=== PATIENT | female | born 2000 | race Caucasian/White ===

== ENCOUNTER 2022-10-12 22:03 | Inpatient (IN) ==
--- NOTE | 2022-10-13 00:39 | Obstetrical Progress Note ---
Date of Service October 13, 2022 Assessment & Plan (1) Encounter for maternal care for breech presentation in [place] : Plan: 22yo @ 39 weeks gestation labor check Minimal irreg ctx VE; 2cm - unchanged Breech presentation admit for c/sec Ctx are minimal. c/sec cornelius for AM Results & Data ([place]) Vital Signs (Past 12 Hours) Vital Signs Temp Pulse Resp BP 10/13/22 00:00 18 10/13/22 00:00 18 10/12/22 22:12 74 136/84 10/12/22 22:23 36.5 C 18
[2022-10-13 01:06] LABS: Basophils # (auto) 0.02 K/uL (0-0.2); Basophils % (auto) 0.1 %; Eosinophils % (auto) 0.6 %; Hematocrit (blood only) 36.3 % (37.0-47.0); Hemoglobin 12.5 g/dl (12.0-16.0); Immature Granulocytes # (auto) 0.06 K/uL (0.01-0.20); Immature Granulocytes % (auto) 0.4 %; Lymphocytes # (auto) 3.08 K/uL (1.2-3.4); Lymphocytes % (auto) 18.5 %; Mean Corpuscular Hemoglobin 30.3 pg (25.0-34.0); Mean Corpuscular Hgb Conc 34.4 g/dL (32.0-36.0); Mean Corpuscular Volume 87.9 fL (80.0-100.0); Mean Platelet Volume 10.9 fL (9.4-12.4); Monocytes # (auto) 1.03 K/uL (0.11-0.59); Monocytes % (auto) 6.2 %; Neutrophils # (auto) 12.36 K/uL (1.40-6.50); Neutrophils % (auto) 74.2 %; Platelet Count 254 K/uL (130-400); RDW Coefficient of Variation 12.8 % (11.5-14.5); Red Blood Count 4.13 M/uL (4.20-5.40); White Blood Count 16.65 K/ul (4.8-10.8)
[2022-10-13] MEDS ORDERED: LACTATED RINGER'S 1,000 ML IV SCH ×2 (01:45→07:15)
--- NOTE | 2022-10-13 04:58 | Obstetrical Progress Note ---
Date of Service October 13, 2022 Assessment & Plan (1) Encounter for maternal care for breech presentation in [place] : Plan: pt doing well SROM with mec VE; 5cm Will proceed with c/sec risk of surg discussed and consent signed Admission and Anticipated Discharge Date Admission Date: October 13, 2022 Results & Data ([facility]) Vital Signs (Past 12 Hours) Vital Signs Temp Pulse Resp BP 10/13/22 04:42 85 147/81 H 10/13/22 04:34 78 163/81 H 10/13/22 04:23 36.7 C 78 18 158/87 H 10/13/22 01:00 18 10/13/22 01:00 18 10/13/22 00:39 72 144/83 H 10/13/22 00:00 18 10/13/22 00:00 18 10/12/22 22:12 74 136/84 10/12/22 22:23 36.5 C 18
[2022-10-13] MEDS ORDERED: OXYTOCIN 10 UNITS/ML 10ML VIAL ONE ×3 (05:19→06:26)
[2022-10-13] MEDS ORDERED: fentaNYL citrate 100 MCG/2 ML VIAL ONE ×6 (05:20→06:45)
[2022-10-13] MEDS ORDERED: MoRPHine SULFATE PF 1 MG/ML 10 ML AMP/VIAL ONE (05:20)
[2022-10-13] MEDS ORDERED: CITRIC ACID/SODIUM CITRATE 15 ML UDC ONE (05:30)
[2022-10-13] MEDS ORDERED: MoRPHine SULFATE PF 1 MG/ML 10 ML AMP/VIAL INT SPINAL ONE (05:33)
[2022-10-13] MEDS ORDERED: NALOXONE HCL 1 MG in SODIUM CHLORIDE 0.9% 1000ML 1,000 ML IV PRN (05:33)
[2022-10-13] MEDS ORDERED: MoRPHine SULFATE 2 MG/ML CARP IV PRN (05:33)
[2022-10-13] MEDS ORDERED: ONDANSETRON INJ 2 MG/ML 2 ML VIAL IV PRN ×2 (05:33→23:33)
[2022-10-13] MEDS ORDERED: NALOXONE HCL 0.4 MG/1 ML VIAL/CARP IV PRN (05:33)
[2022-10-13] MEDS ORDERED: ePHEDrine sulfate 50 MG/ML AMP IV PRN (05:33)
[2022-10-13] MEDS ORDERED: NALBUPHINE HCL INJ 10 MG/ML AMP IV PRN (05:33)
[2022-10-13] MEDS ORDERED: NALOXONE HCL 0.08 MG in SYRINGE 1.8 ML IV PRN (05:33)
[2022-10-13] MEDS ORDERED: LACTATED RINGER'S 500 ML IV PRN (05:33)
[2022-10-13] MEDS ORDERED: diphenhydrAMINE 50 MG/ML VIAL IV PRN ×2 (05:33→23:33)
--- NOTE | 2022-10-13 05:33 | Anesthesiology Consultation ---
Date of Service October 13, 2022 Assessment & Plan ASA ASA2E Proposed Anesthesia Anesthesia Type: Spinal Risk / Benefits Reviewed With: PT / POA / Parent / Guardian, Accepts Plan and Informed Consent Obtained History Surgery Operation Date: 10/13/22 05:45 Proposed Procedures p Section in LD - Vick Le MD Height/Weight Height: 5 ft 5 in Weight: 107.048 kg Allergies Allergy/AdvReac Type Severity Reaction Status Date / Time No Known Allergies Allergy Verified 10/08/22 10:22 Medications Home Medications Medication Instructions Recorded Confirmed Last Taken docusate sodium 100 mg capsule 100 mg PO DAILY PRN Constipation 10/08/22 10/12/22 10/11/22 (Colace) 2099 ferrous fumarate-vitamin C 66 1 tab PO QAM 10/08/22 10/12/22 10/11/22 mg-125 mg chewable tablet 2099 jmteoxsl-[id number]-FA 1 mg 1 tab PO QAM 10/08/22 10/12/22 10/11/22 tablet 2100 Active Medications Generic Name Dose Route Start Last Admin Trade Name Vinayakq PRN Reason Stop Dose Admin Lactated Ringer's 1,000 mls @ 125 mls/hr 10/13/22 01:45 10/13/22 04:36 Lr IV 11/12/22 01:44 125 mls/hr .Q8H FELICITY Administration NPO Date Last Intake of Fluids: 10/12/22 Time Last Intake of Fluids: 23:00 Date Last Intake of Solids: 10/12/21 Time Last Intake of Solids: 15:00 Past Medical History Medical History Depression no meds currently History of COVID-19 08/2021 - head cold > no problems since Lactose intolerance Exercise / Class Metabolic Activity II 4-5 Yardwork/Stairs/Walk up hill Past Surgical History Surgical History Hx of dilation and curettage Hx of wisdom tooth extraction Past Anesthesia History No Hx of Anesthesia Complications and No Family Hx of Anesthesia Complications History of PONV No Hx of PONV and No Hx of Motion Sickness Social History Smoking Status: Never smoker Do You Dip or Chew Tobacco: No Hx Alcohol Use: No Hx Substance Use: No substance use type: does not use Review of Systems denies fever/cough/ colds/ chest pain/ SOB/ ROBERT denies ROBERT Physical Exam Vital Signs Last Vital Signs Temp 36.7 C 10/13/22 04:23 Pulse 85 10/13/22 04:42 Resp 18 10/13/22 04:23 BP 147/81 H 10/13/22 04:42 ENMT Mouth: no TMJ abnormality and no dentition abnormality Thyromental Distance: > or= 3.5 Finger Breadths Mallampati Class: II Neck neck extension not limited Respiratory normal respiratory effort; no respiratory distress Auscultation: lungs clear to auscultation bilaterally Cardiovascular Rate/Rhythm: regular rate and regular rhythm Neurologic moves all extremities Psychiatric Orientation: alert and oriented x 3 Testing Laboratory Results 10/13/22 00:44 Blood Type A Positive 10/13/22 00:44 Antibody Screen NEGATIVE 10/13/22 00:44
[2022-10-13] MEDS ORDERED: SODIUM CHLORIDE 0.9% 1000ML 1,000 ML IV SCH (05:45)
[2022-10-13] MEDS ORDERED: NO NARCOTICS OR SEDATIVES SCH (05:45)
[2022-10-13] MEDS ORDERED: DC INTRASPINAL MORPHINE SCH (05:45)
[2022-10-13] MEDS ORDERED: ceFAZolin 2000MG 2,000 MG/15 ML SYR IV SCH (06:00)
[2022-10-13] MEDS ORDERED: PHENYLEPHRINE HCL 10 MG/ML VIAL ONE (06:00)
[2022-10-13] MEDS ORDERED: METHYLERGONOVINE MALEATE 0.2 MG/ML AMP ONE ×2 (06:22→06:50)
[2022-10-13] MEDS ORDERED: OXYTOCIN 10 UNITS/ML 10ML VIAL IM ONE (06:25)
[2022-10-13] MEDS ORDERED: KETAMINE 50 MG/5 ML SYRINGE ONE (06:46)
[2022-10-13] MEDS ORDERED: miSOPROStoL 200 MCG TAB ONE (07:02)
[2022-10-13] MEDS ORDERED: MAGNESIUM HYDROXIDE SUSP 30 ML UDC PO PRN (07:12)
[2022-10-13] MEDS ORDERED: BENZOCAINE 20% AER SPR 82.5 GM CAN EXT PRN (07:12)
[2022-10-13] MEDS ORDERED: DIPHTHERIA/TETANUS/PERTUSSIS 0.5mL SYR/VIAL (Age 7+yrs) IM ONE (07:12)
[2022-10-13] MEDS ORDERED: HYDROCORTISONE ACETATE 25 MG SUPP PR PRN (07:12)
[2022-10-13] MEDS ORDERED: SENNA 8.6 MG TAB PO PRN (07:12)
[2022-10-13 07:15] LABS: Base Excess Cord Arterial Bld -4.4 mEq/L (-9-1.8); CO2 Cord Arterial Blood 39 mmHg (39.1-73.5); HCO3 Cord Arterial Blood 21 mmol/L (19.7-28.5); PO2 Cord Arterial Blood 37 mmHg (4.1-31.7); pH Cord Arterial Blood 7.34 (7.1-7.38)
[2022-10-13] MEDS ORDERED: miSOPROStoL 200 MCG TAB PR ONE (07:19)
[2022-10-13] MEDS: OXYTOCIN 20 UNITS in LACTATED RINGER'S 1,000 ML IV SCH ×2 (07:26→17:43)
[2022-10-13] MEDS: KETOROLAC 30 MG/ML VIAL IV PRN ×3 (07:51→21:32)
--- NOTE | 2022-10-13 08:01 | Operative Report (OR) ---
DATE OF SURGERY: 10/13/2022 INDICATION FOR SURGERY: This is a 22-year-old G1, P0 at 39 weeks with breech fetus presentation. PREOPERATIVE DIAGNOSES: 1. at term. 2. Breech presentation. 3. Spontaneous rupture of membranes. 4. Meconium. POSTOPERATIVE DIAGNOSES: 1. at term. 2. Breech presentation. 3. Spontaneous rupture of membranes. 4. Meconium. OPERATIONS: Primary section. SURGEON: Vick Le MD. INTEGRATION DIRECTOR: Rosie Ba RN ANESTHESIA: Spinal. ATTENDING FOR ANESTHESIA: Mark Loredo D.O. DRAINS: None. ESTIMATED BLOOD LOSS: 800 mL INTRAVENOUS FLUIDS: 1500 mL. URINE OUTPUT: 300 mL of clear urine at the end of the procedure. SPECIMEN: Cord blood, cord gas, and placenta. INTRAOPERATIVE COMPLICATIONS: None. PATIENT CONDITION: Stable. DISPOSITION: Postanesthesia care unit. ATTESTATION: I performed the entire procedure. FINDINGS: Live infant in lissy breech presentation. Cord appeared grossly normal. Placenta appeare d grossly normal. Uterus, tubes, and ovaries otherwise unremarkable. DESCRIPTION OF PROCEDURE: The patient was taken to the operating room where she was prepped and drap ed in normal sterile fashion in dorsal lithotomy position. Time-out was called. [place] was placed. A low-transverse Pfannenstiel incision was made and carried down to the fascia. Fascia was incised i n the midline and extended laterally on both sides. Fascia was sharply dissected off the rectus abdo minis muscle. This was done superiorly and inferiorly. Rectus abdominis muscle was . Natividad toneum was grasped and entered sharply. Once inside the abdomen, an Alban retractor was placed for retraction. Findings of the uterus and abdomen was as dictated above. Vesicouterine peritoneum was sharply dissected off the lower segment of the uterus. A low-transverse incision was made on the jeana cat and extended laterally on both sides using bandage scissors. was lissy breech and deliver ed without difficulty. There was nuchal cord, which was easily reduced. Cord was clamped and cut af ter 1 minute and was handed over to the waiting pediatric team. Details of 's informati on is in the pediatric record. Cord blood and cord gases were obtained. Placenta was manually removed. Uterus was exteriorized and cleared of all clots and debris. Uterus was closed in 2 layers using Vicryl stitch. There was good hemostasis post repair. Bladder flap was reapproximated with a plain suture. Copious amount of irr igation was used to irrigate the abdomen. Uterus was returned into the abdominal cavity. Peritoneum was reapproximated using plain suture. Fascia was closed in a running fashion using Vicryl stitch. Subcutaneous space was irrigated and closed with plain suture. Skin was closed with cherie. All instruments were removed from the abdomen including sponges, needles, and retractors and the umair ent was sent to recovery in stable condition. Job ID: [id number]
--- NOTE | 2022-10-13 09:06 | Anesthesiology Progress Note ---
Date of Service October 13, 2022 Anesthesia Post Procedure Vital Signs Vital Signs: Temp Pulse Resp BP Pulse Ox 10/13/22 08:50 90 134/65 10/13/22 08:35 36.5 C 92 H 98 10/13/22 08:20 36.5 C 90 98 10/13/22 08:10 88 98 10/13/22 07:59 89 98 10/13/22 07:50 88 99 10/13/22 07:40 36.7 C 90 97 10/13/22 07:30 36.7 C 90 97 10/13/22 07:30 36.7 C 10/13/22 09:00 82 150/66 H 10/13/22 08:50 90 134/65 10/13/22 08:40 88 128/73 10/13/22 08:27 92 H 98 10/13/22 08:22 90 98 10/13/22 08:20 82 133/55 L 10/13/22 08:17 80 97 10/13/22 08:12 88 98 10/13/22 08:10 84 142/80 H 10/13/22 08:07 90 98 10/13/22 08:02 93 H 97 10/13/22 08:01 86 143/79 H 10/13/22 07:57 89 98 10/13/22 07:52 88 99 10/13/22 07:47 96 H 99 10/13/22 07:42 90 97 10/13/22 07:40 84 172/70 H 10/13/22 07:39 98 H 92 10/13/22 07:37 88 100 10/13/22 07:32 86 100 10/13/22 07:27 84 100 10/13/22 07:22 79 99 10/13/22 07:21 76 90 10/13/22 07:17 78 99 10/13/22 07:12 80 99 10/13/22 07:13 76 141/99 H 10/13/22 04:42 85 147/81 H 10/13/22 04:34 78 163/81 H 10/13/22 04:23 36.7 C 78 18 158/87 H 10/13/22 01:00 18 10/13/22 01:00 18 10/13/22 00:39 72 144/83 H 10/13/22 00:00 18 10/13/22 00:00 18 10/12/22 22:12 74 136/84 10/12/22 22:23 36.5 C 18 Pain Intensity Lower: Pain Intensity: 5 Transfer of Care Handoff Completed per policy Notes Mental Status: alert / awake / arousable and participated in evaluation Nausea / Vomiting: adequately controlled Pain: adequately controlled Airway Patency, RR, SpO2: stable & adequate BP & HR: stable & adequate Hydration State: stable & adequate Neuraxial Anesthesia: was administered and sensory block is resolving Anesthetic Complications: no major complications apparent and Pt Satisfied with anesthetic care
[2022-10-13] MEDS: SIMETHICONE 80 MG CHEW PO SCH ×2 (15:50→21:34)
[2022-10-13] MEDS: DOCUSATE SODIUM 100 MG CAP PO SCH (21:33)
[2022-10-13] MEDS ORDERED: diphenhydrAMINE Capsule 25 MG CAP PO PRN (23:33)
[2022-10-13] MEDS ORDERED: PROMETHAZINE HCL 25 MG in SODIUM CHLORIDE 0.9% 50 ML IV PRN (23:33)
[2022-10-14] MEDS: oxyCODONE/ACETAMINOPHEN 5mg/325mg TAB PO PRN ×5 (03:39→21:30)
[2022-10-14] MEDS: IBUPROFEN 600 MG TAB PO PRN ×5 (03:40→21:30)
[2022-10-14 06:26] LABS: Basophils # (auto) 0.03 K/uL (0-0.2); Basophils % (auto) 0.2 %; Eosinophils # (auto) 0.08 K/uL (0-0.50); Eosinophils % (auto) 0.6 %; Hematocrit (blood only) 25.5 % (37.0-47.0); Hemoglobin 8.7 g/dl (12.0-16.0); Immature Granulocytes # (auto) 0.05 K/uL (0.01-0.20); Immature Granulocytes % (auto) 0.4 %; Lymphocytes # (auto) 2.18 K/uL (1.2-3.4); Lymphocytes % (auto) 16.5 %; Mean Corpuscular Hemoglobin 30.3 pg (25.0-34.0); Mean Corpuscular Hgb Conc 34.1 g/dL (32.0-36.0); Mean Corpuscular Volume 88.9 fL (80.0-100.0); Mean Platelet Volume 10.6 fL (9.4-12.4); Monocytes # (auto) 1.24 K/uL (0.11-0.59); Monocytes % (auto) 9.4 %; Neutrophils # (auto) 9.66 K/uL (1.40-6.50); Neutrophils % (auto) 72.9 %; Platelet Count 176 K/uL (130-400); RDW Coefficient of Variation 13.1 % (11.5-14.5); RDW Standard Deviation 42.6 fL (36.4-46.3); Red Blood Count 2.87 M/uL (4.20-5.40); White Blood Count 13.24 K/ul (4.8-10.8)
--- NOTE | 2022-10-14 07:26 | Obstetrical Progress Note ---
Date of Service October 14, 2022 Assessment & Plan (1) delivery delivered: s/p c/sec day 1 pt doing well continue day 31 care Results & Data ([facility]) Vital Signs (Past 12 Hours) Vital Signs Temp Pulse Resp BP Pulse Ox O2 Del Method 10/14/22 03:37 37.0 C 86 18 115/75 97 Room Air 10/13/22 23:25 18 99 10/13/22 23:25 37.2 C 82 18 116/71 99 Room Air 10/13/22 22:03 20 97 10/13/22 21:15 20 97 10/13/22 20:00 18 98 10/13/22 19:45 20 98 10/13/22 19:45 Room Air 10/13/22 19:45 37.2 C 72 20 109/69 98 Room Air
[2022-10-14] MEDS: SIMETHICONE 80 MG CHEW PO SCH ×4 (08:53→21:14)
[2022-10-14] MEDS: DOCUSATE SODIUM 100 MG CAP PO SCH ×2 (08:54→21:13)
[2022-10-14] MEDS: FERROUS SULFATE 325 MG TAB PO SCH (08:54)
[2022-10-14] MEDS: PRENATAL VITAMIN 1 TAB PO SCH (08:54)
[2022-10-14] MEDS ORDERED: bisacodyL 5 MG TABEC PO SCH (20:00)
[2022-10-15] MEDS: oxyCODONE/ACETAMINOPHEN 5mg/325mg TAB PO PRN ×3 (02:28→12:07)
[2022-10-15] MEDS: IBUPROFEN 600 MG TAB PO PRN ×3 (02:28→12:07)
[2022-10-15 06:48] LABS: Hematocrit (blood only) 27.2 % (37.0-47.0); Hemoglobin 9.2 g/dl (12.0-16.0)
[2022-10-15] MEDS ORDERED: bisacodyL 10 MG SUPP PR PRN (07:12)
[2022-10-15] MEDS: DOCUSATE SODIUM 100 MG CAP PO SCH (08:07)
[2022-10-15] MEDS: SIMETHICONE 80 MG CHEW PO SCH (08:07)
[2022-10-15] MEDS: FERROUS SULFATE 325 MG TAB PO SCH (08:07)
[2022-10-15] MEDS: PRENATAL VITAMIN 1 TAB PO SCH (08:34)
--- NOTE | 2022-10-15 10:20 | Obstetrical Progress Note ---
Date of Service October 15, 2022 Assessment & Plan (1) delivery delivered: c/sec day #1 Pt ding well wishes to be discharged home Results & Data ([facility]) Vital Signs (Past 12 Hours) Vital Signs Temp Pulse Pulse Resp BP Pulse Ox O2 Del Method 10/15/22 07:57 36.7 C 88 18 132/85 98 Room Air 10/14/22 23:35 37.0 C 86 20 127/78 99 Room Air
--- NOTE | 2022-10-15 11:48 | Discharge Summary (DS) ---
DATE OF ADMISSION: 10/13/2022. DATE OF DISCHARGE: 10/15/2022. CHIEF COMPLAINT: 1. at term. 2. Scheduled for breech presentation. HISTORY OF PRESENT ILLNESS: This is a 22-year-old G1, P0, who presented to labor and delivery on 12/2022 for labor presentation. The patient was known breech presentation and had been scheduled for section on 10/16/2022. However, on 10/13/2022, the patient presented to labor and delivery when she was in labor. Decision was therefore made to proceed with section. The patient un derwent section. Details of surgery is in the surgical note. Pediatric information is in t pediatric chart as well. Surgery was otherwise unremarkable. The patient did well and met all ak lestones on postoperative day 1 and is being discharged home in stable condition today. PAST MEDICAL HISTORY: History of depression. PAST SURGICAL HISTORY: History of dilation and curettage, as well as dental procedures. SOCIAL HISTORY: Denies tobacco, drug, or alcohol use. FAMILY HISTORY: Noncontributory. PHYSICAL EXAMINATION: VITAL SIGNS: On 10/15/2022 showed blood pressure 132/85, pulse of 88, respiration of 18, temperature of 36.7. This morning, CBC, hemoglobin is 9.2, hematocrit is 27.2. HEART: S1 and S2, regular rhythm and rate. LUNGS: Clear to auscultation bilaterally. ABDOMEN: Nontender, nondistended. Incision was clean, dry and intact. Positive bowel sounds. EXTREMITIES: No cyanosis, clubbing or edema. CONDITION ON DISCHARGE: Stable. OPERATIONS: section for breech presentation. DISCHARGE DIAGNOSIS: Postoperative after section. PLAN ON DISCHARGE: The patient is discharged home with instructions regarding activity, diet, and fo [facility] appointment. Job ID: [id number]
== END 2022-10-15 12:25 | disposition home or self-care (01) | DRG 788 ==
LOC: OPB 22:03 → 4S1 22:05 → 4E2 10-13 10:21

== ENCOUNTER 2022-10-18 15:42 | Inpatient (IN) ==
--- NOTE | 2022-10-18 16:22 | Emergency Department Note ---
ED Provider Note NAME: ASHELY COLEMAN AGE: 22 SEX: F : 2000 ARRIVES VIA: Walk-In INFORMANT: [Patient][, ] ED PROVIDER(S): [You Meyer MD] CHIEF COMPLAINT: [] MEDICAL DECISION MAKING: [Note all interventions, Interpret results, Remember additional problems, list any social risk factors] [Document consults/transfers/case management discussions-also decisions not to test/admit/transfer] Prior /Outside records reviewed: [none] Differential diagnosis: [] Diagnostics, as interpreted by me: ECG: [none] Cardiac monitoring: An order was placed for continuous cardiac monitoring. The monitor shows a rate of [] with [] rhythm. [Patient was placed on pulse oximetry] Medical decision rules: [none] Imaging studies: See below HPI: [] PAST MEDICAL HISTORY: [See Below] PAST SURGICAL HISTORY: [See Below] SOCIAL HISTORY: [See Below] HOME MEDICATIONS: [See Below] ALLERGIES: [See Below] VITALS: [See Below] PHYSICAL EXAMINATION: GENERAL: NAD, [wearing a mask,] non-toxic. EYE EXAM: Normal conjunctiva. PERRL, no anisocoria and EOM's grossly intact w/o pain. NECK: Supple, no nuchal rigidity, no adenopathy, non-tender. No signs of meningismus. FROM of the neck with good chin to chest and neck extension. No stridor. LUNGS: Clear to auscultation. Normal chest wall mechanics. HEART: NSR, no MRG. ABDOMEN: Abdomen soft, non-tender, normo-active bowel sounds, no masses, no rebound or guarding. BACK: No CVA TTP. SKIN: No rashes and no bruising. UPPER EXTREMITIES: Upper extremities are grossly normal. LOWER EXTREMITIES: Grossly normal, no edema. NEURO EXAM: A&O x3, cranial nerves II-XII grossly intact, normal speech, moves all 4 extremities. Past Med/Surg History Medical History Depression no meds currently History of COVID-19 08/2021 - head cold > no problems since Lactose intolerance Surgical History Hx of dilation and curettage Hx of wisdom tooth extraction Social History Smoking Status: Never smoker Second Hand Exposure: No; Hx Alcohol Use: No Hx Substance Use: No Preferred Language: Maltese Communication Ability: Effective Visual Impairment: No Limitations Manufacturing Engineer Required: No Beliefs That Will Affect Care: None marital status: Current Living Situation: Spouse Current Living Situation Comment: Lives with , Ted and 1 dog and 3 cats current occupational status: student Feels Safe at Home: Yes Childhood Exposure to Second-Hand Smoke: No caffeine: Yes Dental Care, Regularly: Yes Seatbelt Use: always Sunscreen Use: Yes Do you think of yourself as: straight/heterosexual Sexual Activity: has been sexually active within the last 12 months Gender Identity: Female Assistive Devices: None Allergies Allergies Allergy/AdvReac Type Severity Reaction Status Date / Time No Known Allergies Allergy Verified 10/17/22 22:58 Home Meds Home Medications Medication Instructions Recorded Confirmed ferrous fumarate-vitamin C 66 1 tab PO QAM 10/08/22 10/17/22 mg-125 mg chewable tablet docusate sodium 100 mg capsule 100 mg PO BID 10/17/22 10/17/22 ibuprofen 600 mg tablet 600 mg PO Q4H PRN Pain 10/17/22 10/17/22 oxycodone-acetaminophen 5 mg-325 1 - 2 tab PO Q4H PRN Pain 10/17/22 10/17/22 mg tablet (Percocet) vit no.95-ferrous 1 tab PO DAILY 10/17/22 10/17/22 fumarate 28 mg-folic acid 800 mcg tablet () Previous Rx's Medication Instructions Recorded ferrous sulfate 325 mg (65 mg 325 mg PO DAILY@08 #30 tabs 10/15/22 iron) tablet,delayed release Results & Data (ED) Vital Signs Vital Signs - 24 hr 10/18/22 15:44 10/18/22 16:09 10/18/22 16:08 Temperature 36.8 C Temperature Source Temporal Artery Scan Pulse Rate 101 H 105 H 103 H Pulse Rate from SpO2 Sensor 106 H Respiratory Rate 18 31 H Respiratory Depth Normal Blood Pressure 163/90 H Blood Pressure Mean 114 Pulse Oximetry 98 97 Oxygen Delivery Method Room Air Sepsis Recent Fever Within 48 Hours No Sepsis New/Unexplained Change in Mental Status No Sepsis Action Taken by Nursing No Action Required 10/18/22 16:15 Temperature Temperature Source Pulse Rate 98 H Pulse Rate from SpO2 Sensor 97 H Respiratory Rate 20 Respiratory Depth Blood Pressure Blood Pressure Mean Pulse Oximetry 97 Oxygen Delivery Method Sepsis Recent Fever Within 48 Hours Sepsis New/Unexplained Change in Mental Status Sepsis Action Taken by Nursing Discharge Plan Visit Data Chief Complaint: Referred by Doctor Stated Complaint: PRECLAMSIA,HBP,HEADACHE,REF BY DOC ED Provider: You Meyer Forms Stand Alone Forms: [facility] POW Prescriptions Prescriptions: No Action ferrous fumarate-vitamin C 66-125 mg Tablet,Chewable 1 tab PO QAM PNV cmb#95-ferrous fumarate-FA [] 28 mg iron- 800 mcg Tablet 1 tab PO DAILY oxycodone-acetaminophen [Percocet] 5-325 mg tablet 1 - 2 tab PO Q4H PRN (Reason: Pain) docusate sodium 100 mg capsule 100 mg PO BID ibuprofen 600 mg tablet 600 mg PO Q4H PRN (Reason: Pain) ferrous sulfate 325 mg (65 mg iron) Tablet,Delayed Release (Dr/Ec) 325 mg PO DAILY@08 Qty: 30 0RF Referrals Referrals: Alexa Calloway PARony [Primary Care Provider] -
[2022-10-18] MEDS ORDERED: ONDANSETRON 4 MG OD TAB PO PRN (16:51)
[2022-10-18] MEDS ORDERED: ACETAMINOPHEN 325 MG TAB PO PRN (16:51)
[2022-10-18] MEDS ORDERED: D5W AND LACTATED RINGERS 1,000 ML IV SCH (17:00)
[2022-10-18 17:49] LABS: Basophils # (auto) 0.02 K/uL (0-0.2); Basophils % (auto) 0.2 %; Eosinophils # (auto) 0.07 K/uL (0-0.50); Eosinophils % (auto) 0.7 %; Immature Granulocytes # (auto) 0.04 K/uL (0.01-0.20); Immature Granulocytes % (auto) 0.4 %; Lymphocytes # (auto) 1.11 K/uL (1.2-3.4); Lymphocytes % (auto) 11.4 %; Mean Corpuscular Hemoglobin 29.6 pg (25.0-34.0); Mean Corpuscular Hgb Conc 33.3 g/dL (32.0-36.0); Mean Corpuscular Volume 88.8 fL (80.0-100.0); Mean Platelet Volume 9.6 fL (9.4-12.4); Monocytes # (auto) 0.57 K/uL (0.11-0.59); Monocytes % (auto) 5.8 %; Neutrophils # (auto) 7.94 K/uL (1.40-6.50); Neutrophils % (auto) 81.5 %; Platelet Count 299 K/uL (130-400); RDW Coefficient of Variation 12.3 % (11.5-14.5); RDW Standard Deviation 39.8 fL (36.4-46.3); Red Blood Count 3.04 M/uL (4.20-5.40); White Blood Count 9.75 K/ul (4.8-10.8)
[2022-10-18 18:02] LABS: Alanine Aminotransferase 28 U/L (7-52); Albumin Globulin Ratio 0.9 (0.9-2); Albumin Level 3.4 gm/dl (3.4-5.0); Alkaline Phosphatase 96 U/L (34-104); Anion Gap 9 (3-11); Aspartate Aminotransferase 22 U/L (13-39); BUN Creatinine Ratio 19.4 (10-20); Bilirubin,Total 0.4 mg/dl (0.2-1.0); Blood Urea Nitrogen 12 mg/dl (6-23); Calcium 8.7 mg/dl (8.5-10.1); Carbon Dioxide 23 mmol/L (21-32); Chloride 108 mmol/L (98-107); Est GFR (African American) 147.3 ml/min; Est GFR (Non-African American) 127.1 ml/min; Globulin 3.7 gm/dl (2.5-4.0); Glucose 88 mg/dl (70-99(Fasting)); Potassium 3.8 mmol/L (3.5-5.1); Sodium 140 mmol/L (136-145); Total Protein 7.1 gm/dl (6.0-8.3)
[2022-10-18] MEDS: FUROSEMIDE 20 MG TAB PO SCH (18:16)
[2022-10-18] MEDS: LABETALOL HCL 200 MG TAB PO SCH (18:16)
[2022-10-18 18:34] LABS: Total Protein Urine Random 14.1 mg/dl (0-11.9)
[2022-10-18 18:39] LABS: Creatinine Urine Random 42.7 mg/dl; Protein Creatinine Ratio Urine 0.3 (0-0.2)
[2022-10-18] MEDS ORDERED: IBUPROFEN 600 MG TAB PO PRN (21:08)
[2022-10-18] MEDS: DOCUSATE SODIUM 100 MG CAP PO SCH (21:56)
[2022-10-18] MEDS: oxyCODONE/ACETAMINOPHEN 5mg/325mg TAB PO PRN (21:58)
[2022-10-19] MEDS: LABETALOL HCL 200 MG TAB PO SCH (06:13)
[2022-10-19 06:41] LABS: Basophils # (auto) 0.02 K/uL (0-0.2); Basophils % (auto) 0.3 %; Eosinophils # (auto) 0.14 K/uL (0-0.50); Hematocrit (blood only) 24.1 % (37.0-47.0); Hemoglobin 8.1 g/dl (12.0-16.0); Immature Granulocytes # (auto) 0.03 K/uL (0.01-0.20); Immature Granulocytes % (auto) 0.4 %; Lymphocytes # (auto) 1.55 K/uL (1.2-3.4); Lymphocytes % (auto) 21.8 %; Mean Corpuscular Hemoglobin 29.6 pg (25.0-34.0); Mean Corpuscular Hgb Conc 33.6 g/dL (32.0-36.0); Mean Platelet Volume 9.8 fL (9.4-12.4); Monocytes # (auto) 0.68 K/uL (0.11-0.59); Monocytes % (auto) 9.6 %; Neutrophils % (auto) 65.9 %; Platelet Count 265 K/uL (130-400); RDW Coefficient of Variation 12.6 % (11.5-14.5); RDW Standard Deviation 40.4 fL (36.4-46.3); Red Blood Count 2.74 M/uL (4.20-5.40); White Blood Count 7.12 K/ul (4.8-10.8)
[2022-10-19 06:49] LABS: BUN Creatinine Ratio 23.7 (10-20); Bilirubin,Total 0.3 mg/dl (0.2-1.0); Calcium 8.3 mg/dl (8.5-10.1); Creatinine Clr Calc Pharmacy 173.3 ml/min; Est GFR (African American) 149.7 ml/min; Est GFR (Non-African American) 129.2 ml/min; Potassium 3.5 mmol/L (3.5-5.1)
[2022-10-19] MEDS: DOCUSATE SODIUM 100 MG CAP PO SCH (09:03)
[2022-10-19] MEDS: FUROSEMIDE 20 MG TAB PO SCH (09:03)
--- NOTE | 2022-10-19 10:43 | Progress Note ---
Date of Service October 19, 2022 Assessment & Plan (1) hypertension: Plan: pt doing well Bp controlled with labetalol and Lasix Improved symptoms Wvl PI labs Betzy removed Admission and Anticipated Discharge Date Admission Date: October 18, 2022 Results & Data ([facility]) Vital Signs (Past 12 Hours) Vital Signs Temp Pulse Resp BP Pulse Ox O2 Del Method 10/19/22 09:03 36.5 C 84 20 144/88 H 10/19/22 06:14 145/86 H 10/19/22 03:19 36.9 C 80 18 137/82 97 Room Air 10/18/22 23:30 36.7 C 87 18 134/85 Room Air
--- NOTE | 2022-10-19 11:11 | History and Physical Report ---
DATE OF ADMISSION: 10/18/2022 HISTORY OF PRESENT ILLNESS: The patient is a 22-year-old G1, P1 who had a primary section o n 10/12/2022. Surgery was unremarkable. The patient was discharged home after surgery and was doing well until 2 days ago when she started to experience headaches. Her blood pressure was elevated and was seen in the Emergency Room, she was evaluated and discharged home. The patient continued to hav e headaches and elevated blood pressures in the office, she was therefore readmitted yesterday to und ergo another workup. PAST MEDICAL HISTORY: No history of diabetes, hypertension, or pregestational hypertension. PAST SURGICAL HISTORY: History of D and C and dental surgery. SOCIAL HISTORY: The patient is a nonsmoker. Denies drug, tobacco, or alcohol use. FAMILY HISTORY: Noncontributory. PHYSICAL EXAMINATION: VITAL SIGNS: On admission, blood pressure was in 160s/101, pulse was 94, respiration was 21. HEART: S1 and S2, regular rhythm and rate. LUNGS: Clear to auscultation bilaterally. ABDOMEN: Nontender, nondistended. Incision was clean, dry and intact. Betzy from sectio n were intact. EXTREMITIES: No cyanosis, clubbing or edema. ASSESSMENT AND PLAN: Status post section on 10/12/2022. The patient complains of a headac he and generally not feeling well. She has had elevated blood pressures, i.e., hypertensi on. Plan is to admit the patient and control blood pressures and work her up for the cause of her el evated blood pressures. Job ID: [id number]
[2022-10-19] MEDS: oxyCODONE/ACETAMINOPHEN 5mg/325mg TAB PO PRN (11:34)
--- NOTE | 2022-10-19 11:36 | Discharge Summary (DS) ---
DATE OF ADMISSION: 10/18/2022. DATE OF DISCHARGE: 10/19/2022. HISTORY OF PRESENT ILLNESS: This is a 22-year-old G1, P1, status post section on 10/12/2022 . The patient was discharged home and was doing well. She, however, presented to the Emergency Room yesterday with complaints of headache and elevated blood pressures. The patient was admitted and wa s worked up for hypertension. -induced hypertension labs were normal. Blood pressure was c ontrolled with labetalol and Lasix. Today, the patient is discharged home in stable condition on lab etalol. PAST MEDICAL HISTORY: No history of hypertension prior and during . No history of diabetes . PAST SURGICAL HISTORY: History of dilation and curettage, as well as dental procedures. SOCIAL HISTORY: The patient denies tobacco, drug or alcohol use. FAMILY HISTORY: Noncontributory. ALLERGIES: No known drug allergies. REVIEW OF SYSTEMS: Negative except as dictated in the HPI. PHYSICAL EXAMINATION: VITAL SIGNS: Blood pressure this morning is 144/88, pulse is 84, respirations 20, temperature is 36. 5. HEART: S1 and S2, regular rhythm and rate. LUNGS: Clear to auscultation bilaterally. ABDOMEN: Nontender, nondistended, positive bowel sounds. Incisions are clean, dry, and intact. Sta ples are removed and Steri-Strips applied to the incision. CONDITION ON DISCHARGE: Stable. OPERATIONS: Evaluation of hypertension . DISCHARGE DIAGNOSIS: Postoperative hypertension. PLAN ON DISCHARGE: The patient is discharged home with instructions regarding activity, diet, and [facility]. Job ID: [id number]
== END 2022-10-19 13:45 | disposition home or self-care (01) | DRG 776 ==
LOC: ED 15:42 → 4E2 17:58